=== PATIENT | female | born 1955 | race Caucasian/White ===

== ENCOUNTER 2023-12-28 09:39 | Emergency (ER) | payer OTHER ==
[~2023-12-28] VITALS: Ht 162.6 cm; Wt 70.6 kg
[2023-12-28 10:32] LABS: Urine Bacteria FEW /hpf (None Seen); Urine Blood TRACE /uL (Negative); Urine Color Yellow (Yellow); Urine Protein, UAD Negative (Negative); Urine Specific Gravity 1.012 (1.001-1.035); Urine Urobilinogen Normal (Negative); Urine WBC 2 /hpf (0 - 5); Urine pH 5.5 (5.0-9.0)
[2023-12-28 10:33] LABS: Urine Clarity Hazy (Clear)
[2023-12-28 10:47] LABS: Amphetamine Screen, Urine Neg (NEGATIVE); Barbiturate Scree,Urine Neg (NEGATIVE); Benzodiazephine Screen, Urine Neg (NEGATIVE); Cannabinoid Screen, Urine Neg (NEGATIVE); Cocaine Screen, Urine Neg (NEGATIVE); Opiate Scree,Urine Neg (NEGATIVE); Phencyclidine Screen, Urine Neg (NEGATIVE)
[2023-12-28] MEDS: ONDANSETRON ODT 4 MG TAB PO ONE (10:52)
[2023-12-28] MEDS: HYDROcodone-ACET 10/325MG TAB PO ONE (10:52)
[2023-12-28 11:05] LABS: Basophils # (auto) 0.1 10 ^3/uL (0-0.2); Basophils % (auto) 0.7 % (0.0-2.0); Eosinophils # (auto) 0.1 10 ^3/uL (0-0.8); Hemoglobin 14.4 g/dL (12.2-16.2); Monocytes # (auto) 0.6 10 ^3/uL (0-1.3)
[2023-12-28 11:09] LABS: Eosinophils % (auto) 1.2 % (0.0-7.0); Hematocrit 43.5 % (36.0-46.0); Lymphocytes # (auto) 1.7 10 ^3/uL (0.4-5.4); Lymphocytes % (auto) 21.6 % (10.0-50.0); Mean Corpuscular Hemoglobin 30.6 pg (28.0-32.0); Mean Corpuscular Hgb Conc. 33.1 g/dL (32.0-36.0); Mean Corpuscular Volume 92.6 fL (80.0-100.0); Monocytes % (auto) 7.3 % (0.0-12.0); Neutrophils # (auto) 5.4 10 ^3/uL (1.6-8.6); Neutrophils % (auto) 69.2 % (37.0-80.0); Nucleated Red Blood Cells % 0.1 %; Red Blood Cells 4.69 10^6/uL (4.0-5.20); Red Cell Distribution Width 13.5 % (11.8-14.3); White Blood Cell 7.7 10^3/uL (4.4-10.8)
[2023-12-28] MEDS: SODIUM CHLORIDE 0.9% 1,000 ML IV ONE (11:26)
[2023-12-28] MEDS: KETOROLAC TROMETH 30 MG/ML 1ML VIAL IV ONE (11:30)
[2023-12-28 11:38] LABS: Albumin 4.6 g/dL (3.2-4.8); Alkaline Phosphatase 102 U/L (46-116); Anion Gap 7 (5-15); Aspartate Aminotransferase 10 U/L (13-40); BUN/Creatinine Ratio 8.2 (10.0-20.0); Blood Urea Nitrogen 8 mg/dL (9-23); Calcium 10.6 mg/dL (8.5-10.1); Carbon Dioxide 28 mmol/L (20-30); Chloride 106 mmol/L (98-107); Glucose 111 mg/dL (74-106); Potassium 4.5 mmol/L (3.5-5.1); Sodium 141 mmol/L (136-145)
[2023-12-28 11:39] LABS: Bilirubin, Total 0.5 mg/dL (0.2-1.0)
[2023-12-28 11:48] LABS: Alanine Aminotransferase < 9 U/L (7-40)
[2023-12-28 12:38] VITALS: BP 120/75; PULSE 82; RESP 18; TEMP 97.7; O2SAT 95
[2023-12-28] MEDS: IOHEXOL 300 MG/ML 100ML BOTTLE IJ ONE (12:55)
[2023-12-28] MEDS ORDERED: PANT40TA2 PO (14:24)
[2023-12-28] MEDS ORDERED: METO-281 PO (14:24)
[2023-12-28] MEDS ORDERED: MET500T PO (14:24)
[2023-12-28] MEDS ORDERED: NAPR-591 PO (14:24)
[2023-12-28] MEDS ORDERED: LEVO500T91 PO (14:24)
[2023-12-28] MEDS: ONDANSETRON HCL 4 MG/2 ML VIAL IV ONE (14:30)
[2023-12-28] MEDS: levoFLOXacin 500MG 100 ML IV ONE (14:30)
[2023-12-28] MEDS: metroNIDAZOLE 500 MG TAB PO ONE (14:30)
[2023-12-28] MEDS: HYDROcodone-ACET 5/325MG TAB PO ONE (16:05)
== END 2023-12-28 16:38 | disposition home or self-care (01) ==
LOC: ER 09:39
DX: K57.92 Diverticulitis of intestine, part unspecified, without perforation or abscess without bleeding (principal); Z79.899 Other long term (current) drug therapy
CPT/HCPCS: 36415; 71045; 74177; 80053; 80307; 81001; 83605; 84484; 85025; 87040; 96361; 96374; 99285; J1885; J7030; Q0162; Q9967; 83690; 83735